=== PATIENT | male | born 1970 | race Caucasian/White ===

== ENCOUNTER → 2019-03-04 07:01 | Day surgery (SDC) | payer OTHER ==
[~2019-03-04 07:01] MED LIST: Buffered Lidocaine 1% SYRIN* 1 ML/SYRINGE INTRADERM ONE; Bupivacaine 0.25% W/EPI* 10 ML SDV ONE; Cisatracurium* 2 MG/ML MDV 5 ML ONE; Dexamethasone IV* 4 MG/ML 1 ML (4 MG) ONE; Famotidine IV* 10 MG/ML 2 ML (20 mg) IV ONE; Famotidine IV* 10 MG/ML 2 ML (20 mg) ONE; Glycopyrrolate IV* 0.2 MG/ML 1 ML VIAL ONE; HYDROmorphone INJ1* 1 MG/ML SYRINGE ONE; Lactated Ringers 1000 ML Bag* 1,000 ML IV SCH; Lidocaine 2% PF * 5 ML VIAL ONE; Midazolam* 1 MG/ML 5 ML VIAL (5 MG) ONE; Naloxone* 0.4 MG/ML 1 ML VIAL IV PRN; Neostigmine Methylsulfate* 1 MG/ML 10 ML VIAL (1 mg/ml) ONE; Ondansetron INJ* 2 MG/ML VIAL IV PRN; Ondansetron INJ* 2 MG/ML VIAL ONE; Propofol* 10 MG/ML 20 ML BTL ONE; ceFAZolin 2 GM PREMIX in ORs 2 GM/50 ML BAG IVPB ONE; fentaNYL* 50 MCG/ML 2 ML VIAL (100 MCG VIAL) IV PRN; fentaNYL* 50 MCG/ML 5 ML VIAL (250 MCG VIAL) ONE; oxyCODONE/Acetamin 5/325 MG* TAB PO PRN
[2019-03-04 13:52] VITALS: BP 142/92
--- NOTE | 2019-03-05 02:08 | OP ---
DATE OF OPERATION: 03/04/19 - [facility] DATE OF : 66 SURGEON: Isaías Blanton MD. NEEDLE MOLDER: KEVIN Cruz student. ANESTHESIOLOGIST: Ambrocio Claudio MD. ANESTHESIA: General endotracheal. PRE-OP DIAGNOSIS: Bilateral inguinal hernias and umbilical hernia. POST-OP DIAGNOSIS: Bilateral inguinal hernias and umbilical hernia. OPERATIVE PROCEDURE: Laparoscopic preperitoneal repair bilateral inguinal hernias with mesh and umbilical hernia repair. ESTIMATED BLOOD LOSS: Minimal. IV FLUIDS: Crystalloids. SPECIMEN: None. DRAINS: None. COMPLICATIONS: None. COUNTS: Instrument, needle, and sponge counts were correct. DESCRIPTION OF PROCEDURE: The patient was brought to the operating room and placed on the table supine. Sequential compression devices were placed on both lower extremities and general anesthesia was administered. Gonzalez catheter was placed. The patient was positioned and padded appropriately. He received appropriate intravenous antibiotics. He was prepped and draped in the usual sterile fashion. Time-out was performed. Local anesthetic was infiltrated into the skin and soft tissue prior to making the incision. An infraumbilical curvilinear incision was created and subcutaneous tissues were divided. Anterior rectus fascia was identified to the left of midline and incised transversely. The underlying rectus abdominis muscle was retracted laterally and a preperitoneal balloon dissector was positioned down to the level of the pubic symphysis and insufflated under visualization. This was then removed and replaced with a 12-mm blunt port and carbon dioxide was insufflated to a pressure of 12 mmHg. Under direct visualization, two 5-mm trocars were placed in the lower midline. To improve visualization, the midline fascial attachments were sharply lysed, divided. Then dissection proceeded from the midline towards the right side identifying the inferior epigastric vessels and maintaining them in an anterior position. The patient was noted to have weakness in the direct space. There was no evidence of an indirect inguinal hernia and the peritoneal edge was identified and dissected free from the cord structures which were preserved. A small rent was made and endoscopic clips were placed to close it. The dissection proceeded laterally to the anterior superior iliac spine. Next dissection proceeded on the left side. Again, this extended from the midline laterally, identifying and preserving the inferior epigastric vessel in an anterior position. The patient was noted to have a large indirect inguinal hernia sac. The sac was completely dissected free from the cord structures, which were preserved. Again, a small rent was made in the sac and this was controlled with endoscopic closure. The dissection again proceeded laterally to the anterior superior iliac spine. Mesh repair was then performed using the Bard 3D mesh using a large size patch on each side. The mesh was positioned to overlap in the midline and it covered direct, indirect and femoral spaces on both sides. The CapSure tacker was used to secure the mesh at the pubic symphysis and Nadeem ligament. Subsequently, the preperitoneal space was allowed to desulfated under visualization making sure that the mesh stay in good position. Due to the presence of intraperitoneal gas, it was decided to do a peritoneoscopy. First, the 12-mm port was removed from the infraumbilical site and this site was closed with a 0 Vicryl suture in figure- of-eight fashion to approximate the anterior fascia. Next, the umbilical stalk was dissected free from the anterior abdominal wall and a 1-cm hernia defect was identified, containing fat. This was reduced. The 12-mm port was then placed into the umbilical hernia and carbon dioxide was insufflated to a pressure of 15 mmHg. Inspection of the inguinal regions revealed that there was excellent coverage of the mesh on the left side; however , there was rent present in the peritoneum on the right side. In order to close this, the middle 5-mm trocar was inserted into the peritoneal cavity and the inferior 5-mm trocar was maintained in the preperitoneal space and a grasper placed through this. Trocar was used to manipulate the peritoneum while a clip supervisor roving department was passed transabdominally in order to close the defect. Having completed this, all the ports were removed and carbon dioxide was released. The umbilical hernia was repaired with a 0 Vicryl suture using a [id number] stitch. The umbilical stalk was reapproximated to the anterior abdominal wall with 3-0 Vicryl. Skin incisions were closed with 4-0 Monocryl, and at the umbilical site, a two-layer closure with 3-0 Vicryl for the subcutaneous tissue and deep dermis, and 4-0 Monocryl for the skin edge in an interrupted fashion. Steri-Strips were applied at all the sites. The patient tolerated the procedure well and was extubated uneventfully. He was transferred to the recovery room in stable condition. [id number]/[facility] #: [id number] [facility]ITAL[facility]wyn
== END | disposition home or self-care (01) ==
LOC: OR 07:01
PROVIDERS: ATTEND Surgery
DX: K40.20 Bilateral inguinal hernia, without obstruction or gangrene, not specified as recurrent (principal); K42.9 Umbilical hernia without obstruction or gangrene; I10 Essential (primary) hypertension
CPT/HCPCS: C1781; J0690; J1100; J1170; J2250; J2405; J2704; J2710; J3010